=== PATIENT | male | born 1965 | race Caucasian/White ===

== ENCOUNTER → 2017-10-08 | Outpatient (CLI) | payer BC | END | disposition home or self-care (01) | LOC: LABWHC1 10:12 | PROVIDERS: ATTEND Urology | DX: C61 Malignant neoplasm of prostate (principal) | CPT/HCPCS: 36415; 84153 ==

== ENCOUNTER → 2021-06-13 | Outpatient (CLI) | payer BC ==
--- NOTE | 2021-06-13 14:22 | CT ---
EXAMINATION TYPE: CT brain wo con DATE OF EXAM: 06/13/2021 COMPARISON: None HISTORY: Double vision CT DLP: 1168 mGycm Automated exposure control for dose reduction was used. FINDINGS: There is mild generalized degenerative change with faint periventricular low attenuation most typical remote white matter ischemia. No acute hemorrhage or mass effect. No midline shift. There is an area of low attenuation involving the posterior right parietal lobe which most likely is on the basis of remote ischemia correlate with MRI as clinically warranted. Calvarium is intact. Orbits are symmetric. Chronic mucosal polyp or mucous retention cyst right maxil ashley sinus. Craniocervical junction maintained. IMPRESSION: DEGENERATIVE CHANGE WITH NO ACUTE HEMORRHAGE OR MASS EFFECT. SUSPECT AREA OF LOW ATTENUATION IN THE R IGHT POSTERIOR PARIETAL LOBE IS MOST LIKELY CHRONIC. IF THERE IS CONCERN FOR ACUTE ISCHEMIA CONSIDER FOLLOW-UP MRI.
== END | disposition home or self-care (01) ==
LOC: RADCTMAIN 10:22
PROVIDERS: ATTEND Family Medicine
DX: G31.9 Degenerative disease of nervous system, unspecified (principal); H53.2 Diplopia
CPT/HCPCS: 70450

== ENCOUNTER → 2021-06-14 | Outpatient (CLI) | payer BC ==
--- NOTE | 2021-06-15 15:37 | MR ---
MR brain without contrast HISTORY: Visual disturbance, double vision Multiplanar multisequence imaging obtained through the brain and correlated to prior CT brain dated There is no restricted diffusion. Mild cortical atrophy is likely age appropriate. Periventricular, p ericallosal and subcortical hyperintensities are present on inversion recovery and T2-weighted sequen cristal, Pitts's fingers type appearance present in the pericallosal region, largest area of abnormal si gnal axial image 21 measures 18 x 19 mm in the right parietal lobe. There is some focal high signal o n inversion recovery T2-weighted sequences involving the posterior parietal lobe on the right corresp onding to the abnormality seen on CT. There is no hemorrhage or hydrocephalus. Orbits show symmetric appearance. There is likely mucus retention cyst within the maxillary sinuses. There are expected vas cular flow voids. IMPRESSION: Findings may represent demyelinating disease, correlate for multiple sclerosis. Sinus dis ease.
== END | disposition home or self-care (01) ==
LOC: RADMRIMAIN 15:31
PROVIDERS: ATTEND Family Medicine
DX: J32.9 Chronic sinusitis, unspecified (principal); H53.2 Diplopia
CPT/HCPCS: 70551